=== PATIENT | male | born 1995 ===

== ENCOUNTER 2017-05-04 04:21 | Emergency (ER) | payer SELFPAY ==
--- NOTE | 2017-05-04 05:53 | CT ---
EXAM: CT Head Without Intravenous Contrast CLINICAL HISTORY: 21 years old, male; Pain; Headache and other: Head injury; Additional info: Head trauma, R/O bleed TECHNIQUE: Axial computed tomography images of the head/brain without intravenous contrast. All CT scans at this facility use one or more dose reduction techniques, viz.: automated exposure control; ma/kV adjustment per patient size (including targeted exams where dose is matched to indication; i.e. head); or iterative reconstruction technique. Coronal and sagittal reformatted images were created and reviewed. COMPARISON: No relevant prior studies available. FINDINGS: Brain: No intracranial hemorrhage. No mass. No edema. Ventricles: No hydrocephalus. Bones/joints: No calvarial fracture. Soft tissues: Mild scalp swelling. Mastoid air cells: No mastoid effusion. IMPRESSION: 1. No intracranial hemorrhage. 2. See facial bone CT report for additional details.
--- NOTE | 2017-05-04 05:56 | CT ---
EXAM: CT Maxillofacial Without Intravenous Contrast CLINICAL HISTORY: 21 years old, male; Pain; Eye pain; Left; Additional info: Facial injury, nasal trauma, l orbital swelling TECHNIQUE: Axial computed tomography images of the face without intravenous contrast. All CT scans at this facility use one or more dose reduction techniques, viz.: automated exposure control; ma/kV adjustment per patient size (including targeted exams where dose is matched to indication; i.e. head); or iterative reconstruction technique. COMPARISON: No relevant prior studies available. FINDINGS: Bones/joints: No acute fracture. Soft tissues: Mild facial soft tissue swelling. Orbits: Unremarkable as visualized. Sinuses: Scattered mild mucosal thickening. No air-fluid levels. Dental: Dental robina. IMPRESSION: 1. No fracture. 2. Incidental/non-acute findings are described above.
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
[2017-05-04 06:27] VITALS: BP 145/76; PULSE 86; RESP 18; TEMP 98.5
[2017-05-04 06:50] VITALS: O2SAT 99
== END 2017-05-04 06:27 | disposition home or self-care (01) ==
LOC: C.ER 04:21
DX: S00.83XA Contusion of other part of head, initial encounter (principal); S09.90XA Unspecified injury of head, initial encounter; Y04.0XXA Assault by unarmed brawl or fight, initial encounter; Y92.009 Unspecified place in unspecified non-institutional (private) residence as the place of occurrence of the external cause